=== PATIENT | female | born 2000 | race Caucasian/White ===

== ENCOUNTER 2020-12-21 18:12 | Emergency (ER) | payer OTHER ==
[2020-12-21 18:50] LABS: Absolute Lymphocytes (CBC) 1.2 K/uL (0.7-4.9); Basophils % 0.1 % (0-1.3); Lymphocytes % 11.6 % (15.3-44.8); MPV 9.7 fL (7.6-11.3); RBC Red Blood Cell Count 4.28 M/uL (3.86-4.86)
[2020-12-21 19:01] LABS: Protime INR 1.15
[2020-12-21] MEDS ORDERED: NA CHLORIDE 0.9% 1,000 ML ONE (19:06)
[2020-12-21 19:15] LABS: ALT/SGPT 17 U/L (12-78); AST/SGOT 11 U/L (15-37); Albumin 4.3 g/dL (3.4-5.0); Alkaline Phosphatase 93 U/L (45-117); BUN Blood Urea Nitrogen 13 mg/dL (7-18); Bicarbonate 27 mmol/L (21-32); Bilirubin Direct 0.2 mg/dL (0-0.2); Bilirubin Total 0.6 mg/dL (0.2-1.0); Glucose Level 85 mg/dL (74-106); Potassium 3.9 mmol/L (3.5-5.1); Protein, Total 7.5 g/dL (6.4-8.2); Sodium Level 143 mmol/L (136-145)
--- NOTE | 2020-12-21 19:15 | RAD REPORT ---
EXAM DESCRIPTION: CT - Head C Spine Mpr Wo Con - 12/21/2020 6:57 pm CLINICAL HISTORY: Head and neck injury status post trauma. Head and neck pain COMPARISON: None. TECHNIQUE: Computed axial tomography of the head and cervical spine was obtained. Sagittal and coronal reconstruction was performed. All CT scans are performed using dose optimization technique as appropriate and may include automated exposure control or mA/KV adjustment according to patient size. FINDINGS: Right frontal scalp swelling. An intracranial bleed is not seen. The ventricles are normal in caliber. An extra-axial fluid collect ion is not noted.Fluid within the visualized sinuses and mastoids is not seen A cervical fracture is not visualized. No dislocation is noted. IMPRESSION: No acute intracranial abnormality is seen. A cervical fracture is not visualized. If the patient continues to have symptoms to suggest intracra nial /spinal cord pathology then MRI would be recommended
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
[2020-12-21] MEDS ORDERED: LIDOCAINE 1% 20 ML MDV ONE (20:20)
[2020-12-21 21:10] VITALS: BP 112/62; TEMP 98.5; O2SAT 99
== END 2020-12-21 20:45 ==
LOC: ER 18:12
PROC: 0JQ10ZZ Repair Face Subcutaneous Tissue and Fascia, Open Approach (ICD-10-PCS; principal; 2020-12-21)
DX: S01.111A Laceration without foreign body of right eyelid and periocular area, initial encounter (principal); F25.9 Schizoaffective disorder, unspecified; W22.8XXA Striking against or struck by other objects, initial encounter; Y93.89 Activity, other specified; Y92.481 Parking lot as the place of occurrence of the external cause; Z88.8 Allergy status to other drugs, medicaments and biological substances; F17.210 Nicotine dependence, cigarettes, uncomplicated
CPT/HCPCS: 93005; 85025; 80048; 36415; 80320; 80329 ×2; 85610; 80076; 85730; 70450; 72125; 12013; J7030; 96360; 96361; 99285